=== PATIENT | male | born 1945 | race Caucasian/White ===

== ENCOUNTER 2019-05-21 09:41 | Inpatient (IN) ==
[2019-05-21] MEDS ORDERED: Ipratropium/Albuterol Neb 3 ML IH STA (10:10)
[2019-05-21 11:14] LABS: Basophils # 0.1 K/mcL (0.0-0.2); Basophils % 1.2 %; Eosinophils # 0.3 K/mcL (0.0-0.6); Eosinophils % 2.9 %; Hematocrit 33.4 % (37.5-50.1); Hemoglobin 11.9 g/dL (12.9-16.9); Immature Granulocytes % 1.5 % (0-4); Lymphocytes # 1.9 K/mcL (0.6-4.6); Lymphocytes % 20.6 %; Mean Corpuscular HGB Conc 35.6 g/dL (31.6-35.5); Mean Corpuscular Hemoglobin 34.6 pg (28.0-33.3); Mean Corpuscular Volume 97.1 fL (83.0-100.0); Monocytes # 0.9 K/mcL (0.0-1.3); Monocytes % 9.6 %; Platelet Count 208 K/mcL (140-400); Red Blood Count 3.44 M/mcL (4.19-5.50); Segmented Neutrophils % 64.2 %; White Blood Count 9.3 K/mcL (4.3-11.1)
[2019-05-21] MEDS ORDERED: Acetaminophen 325 MG TABLET PO PRN (15:21)
[2019-05-21] MEDS ORDERED: Naloxone 0.4 MG/ML INJ IVP PRN (15:21)
[2019-05-21] MEDS ORDERED: Ondansetron 4 MG/2 ML VIAL IVP PRN (15:21)
[2019-05-21] MEDS ORDERED: GuaiFENesin Liq 200 MG/10 ML UDC PO PRN (15:47)
[2019-05-21] MEDS: Albuterol 2.5 MG/3 ML NEBULIZER IH SCH ×2 (16:15→19:31)
[2019-05-21] MEDS: predniSONE 20 MG TABLET PO SCH (17:24)
[2019-05-21] MEDS: Azithromycin 250 MG TABLET PO SCH (17:25)
[2019-05-21] MEDS: Magnesium Oxide 400 MG TABLET PO SCH (20:46)
[2019-05-22] MEDS: Albuterol 2.5 MG/3 ML NEBULIZER IH SCH ×6 (00:20→20:23)
[2019-05-22 06:45] LABS: BUN/Creatinine Ratio 15 (6-26); Blood Urea Nitrogen 17 mg/dL (8-23); Calcium 9.3 mg/dL (8.6-10.3); Carbon Dioxide 26 mEq/L (23-29); Chloride 93 mEq/L (98-107); Glucose 316 mg/dL (70-105); Osmolality,Calculated 280 (280-300); Potassium 4.6 mEq/L (3.5-5.1); Sodium 128 mEq/L (136-145); eGFR For African Americans > 60 (> 60); eGFR For Non-African Americans > 60 (> 60)
[2019-05-22] MEDS: Azithromycin 250 MG TABLET PO SCH (08:24)
[2019-05-22] MEDS: predniSONE 20 MG TABLET PO SCH (08:25)
[2019-05-22] MEDS: Nicotine 14 MG PATCH.TD24 TD SCH (08:27)
[2019-05-22] MEDS: Magnesium Oxide 400 MG TABLET PO SCH ×2 (10:02→20:20)
[2019-05-22] MEDS: *HR* HYDROcodone/Acet 5/325 mg TABLET PO PRN ×2 (12:59→20:33)
[2019-05-22] MEDS ORDERED: Dextrose Gel 15 GM/37.5 ML TUBE PO PRN ×2 (14:56)
[2019-05-22] MEDS ORDERED: D5% in Water 1,000 ML IVC PRN (14:56)
[2019-05-22] MEDS ORDERED: *HR* Dextrose 50 % in Water (Syg) 50 ML SYRINGE IVP PRN (14:56)
[2019-05-22] MEDS: Insulin LISPRO 300 UNITS/3 ML VIAL SQ SCH ×2 (16:42→20:20)
[2019-05-22 17:06] LABS: Estimated Average Glucose 229 mg/dl
[2019-05-22 18:34] LABS: Prothrombin Time 11.9 Seconds (9.4-12.1)
[2019-05-22 18:36] LABS: Activated Partial Thrombo Time 29.1 Seconds (26.0-36.0)
[2019-05-23] MEDS: Albuterol 2.5 MG/3 ML NEBULIZER IH SCH ×6 (00:25→20:48)
[2019-05-23 06:49] LABS: BUN/Creatinine Ratio 22 (6-26); Blood Urea Nitrogen 27 mg/dL (8-23); Calcium 9.4 mg/dL (8.6-10.3); Carbon Dioxide 27 mEq/L (23-29); Chloride 95 mEq/L (98-107); Glucose 170 mg/dL (70-105); Osmolality,Calculated 279 (280-300); Potassium 4.4 mEq/L (3.5-5.1); Sodium 130 mEq/L (136-145); eGFR For African Americans > 60 (> 60); eGFR For Non-African Americans 58 (> 60)
[2019-05-23] MEDS: predniSONE 20 MG TABLET PO SCH (08:35)
[2019-05-23] MEDS: Nicotine 14 MG PATCH.TD24 TD SCH (08:35)
[2019-05-23] MEDS: Azithromycin 250 MG TABLET PO SCH (08:35)
[2019-05-23] MEDS: Insulin LISPRO 300 UNITS/3 ML VIAL SQ SCH ×4 (08:36→20:38)
[2019-05-23] MEDS: Magnesium Oxide 400 MG TABLET PO SCH ×2 (08:36→20:37)
[2019-05-23] MEDS: *HR* HYDROcodone/Acet 5/325 mg TABLET PO PRN ×2 (08:45→16:36)
[2019-05-23] MEDS: 0.9 % Sodium Chloride 1,000 ML IVC SCH (20:48)
[2019-05-23] MEDS ORDERED: Insulin DETEMIR 100 UNIT/ML X5UNITS SQ SCH (21:00)
[2019-05-24] MEDS: Albuterol 2.5 MG/3 ML NEBULIZER IH SCH ×7 (00:22→23:24)
[2019-05-24 07:25] LABS: Chol/HDL Ratio 3.9 (0-4.9)
[2019-05-24] MEDS: Insulin LISPRO 300 UNITS/3 ML VIAL SQ SCH ×2 (07:27→12:29)
[2019-05-24] MEDS: Azithromycin 250 MG TABLET PO SCH (08:36)
[2019-05-24] MEDS: Magnesium Oxide 400 MG TABLET PO SCH (08:36)
[2019-05-24] MEDS: predniSONE 20 MG TABLET PO SCH (08:36)
[2019-05-24] MEDS: Nicotine 14 MG PATCH.TD24 TD SCH (08:36)
[2019-05-24] MEDS: 0.9 % Sodium Chloride 1,000 ML IVC SCH (10:22)
[2019-05-24] MEDS ORDERED: *HR* FentaNYL (PF) 100 MCG/2 ML VIAL ONE ×2 (14:25→14:26)
[2019-05-24] MEDS ORDERED: Ondansetron 4 MG/2 ML VIAL ONE (14:25)
[2019-05-24] MEDS ORDERED: Dexamethasone 4 MG/ML VIAL ONE (14:25)
[2019-05-24] MEDS ORDERED: Lidocaine -MPF 2% 2 ML VIAL ONE (14:25)
[2019-05-24] MEDS ORDERED: *HR* Midazolam HCl 2 MG/2 ML VIAL ONE (14:25)
[2019-05-24] MEDS ORDERED: *HR* Propofol 200 MG/20 ML VIAL IVP ONE (14:25)
[2019-05-24] MEDS ORDERED: cloNIDine HCl 0.1 MG TABLET ONE (14:34)
[2019-05-24] MEDS ORDERED: Acetaminophen IV 1,000 MG/100 ML INFUS..BTL ONE (14:34)
[2019-05-24] MEDS ORDERED: Famotidine 20 MG/2 ML VIAL ONE (14:34)
[2019-05-24] MEDS ORDERED: Pregabalin 75 MG CAPSULE ONE (14:34)
[2019-05-24] MEDS ORDERED: *HR* Rocuronium Bromide 50 MG/5 ML VIAL ONE (14:45)
[2019-05-24] MEDS ORDERED: CeFAZolin Syr 2,000MG/20 ML 2,000 MG/20 ML SYRINGE IVPB ONE (14:57)
[2019-05-24] MEDS ORDERED: EPHEDrine 50 MG/ML VIAL ONE (15:54)
[2019-05-24] MEDS ORDERED: 0.9 % Sodium Chloride 1,000 ML IVC SCH (18:17)
[2019-05-24] MEDS ORDERED: Ondansetron 4 MG/2 ML VIAL IVP PRN (18:17)
[2019-05-24] MEDS ORDERED: D5% in Water 1,000 ML IVC PRN (18:17)
[2019-05-24] MEDS ORDERED: Acetaminophen 325 MG TABLET PO PRN (18:17)
[2019-05-24] MEDS ORDERED: Dextrose Gel 15 GM/37.5 ML TUBE PO PRN ×2 (18:17)
[2019-05-24] MEDS ORDERED: *HR* Dextrose 50 % in Water (Syg) 50 ML SYRINGE IVP PRN (18:17)
[2019-05-24] MEDS ORDERED: *HR* HYDROcodone/Acet 5/325 mg TABLET PO PRN ×2 (18:17)
[2019-05-24] MEDS ORDERED: Naloxone 0.4 MG/ML INJ IVP PRN (18:17)
[2019-05-24] MEDS ORDERED: GuaiFENesin Liq 200 MG/10 ML UDC PO PRN (18:17)
[2019-05-24] MEDS ORDERED: Gabapentin 300 MG CAPSULE PO SCH (21:00)
[2019-05-24] MEDS ORDERED: Magnesium Oxide 400 MG TABLET PO SCH (21:00)
[2019-05-24] MEDS ORDERED: Insulin DETEMIR 100 UNIT/ML X5UNITS SQ SCH ×2 (21:00)
[2019-05-24] MEDS ORDERED: Insulin LISPRO 300 UNITS/3 ML VIAL SQ SCH (21:00)
[2019-05-25] MEDS: Albuterol 2.5 MG/3 ML NEBULIZER IH SCH ×5 (04:06→20:10)
[2019-05-25 07:06] VITALS: BP 167/76
[2019-05-25] MEDS ORDERED: Albuterol 2.5 MG/3 ML NEBULIZER ONE (07:28)
[2019-05-25] MEDS ORDERED: Insulin LISPRO 300 UNITS/3 ML VIAL SQ SCH (07:30)
[2019-05-25] MEDS ORDERED: Azithromycin 250 MG TABLET PO SCH (09:00)
[2019-05-25] MEDS ORDERED: Nicotine 14 MG PATCH.TD24 TD SCH (09:00)
[2019-05-25] MEDS ORDERED: predniSONE 20 MG TABLET PO SCH (09:00)
[2019-05-26] MEDS: Albuterol 2.5 MG/3 ML NEBULIZER IH SCH (00:16)
== END 2019-05-25 16:30 | disposition home or self-care (01) | DRG 168 ==
LOC: EMEROOARM 09:41 → 3BNU 09:41 → SUATTDRO 05-23 10:52 → 2NNU 05-24 14:22
PROVIDERS: ADMIT Internal Medicine; ATTEND Family Medicine

== ENCOUNTER 2019-05-27 22:06 | Observation (INO) ==
[2019-05-27] MEDS ORDERED: Isovue-370 500 ML BOTTLE IVP ONE ×2 (22:23→22:32)
[2019-05-27 23:10] LABS: Basophils % 0.1 %; Hematocrit 28.4 % (37.5-50.1); Immature Granulocytes % 2.5 % (0-4); Lymphocytes # 0.8 K/mcL (0.6-4.6); Lymphocytes % 9.4 %; Mean Corpuscular HGB Conc 33.8 g/dL (31.6-35.5); Mean Corpuscular Hemoglobin 34.4 pg (28.0-33.3); Mean Corpuscular Volume 101.8 fL (83.0-100.0); Mean Platelet Volume 9.6 fL (9.4-12.4); Monocytes # 0.6 K/mcL (0.0-1.3); Monocytes % 6.8 %; Neutrophils # 6.8 K/mcL (1.6-8.9); Platelet Count 174 K/mcL (140-400); Red Blood Count 2.79 M/mcL (4.19-5.50); Red Cell Distribution Width 12.1 % (11.5-14.5); Segmented Neutrophils % 81.2 %; White Blood Count 8.4 K/mcL (4.3-11.1)
[2019-05-27 23:11] LABS: Hemoglobin 9.6 g/dL (12.9-16.9)
[2019-05-27 23:22] LABS: Prothrombin Time 11.7 Seconds (9.4-12.1)
[2019-05-27 23:29] LABS: Bilirubin,Urine Negative (Negative); Blood,Urine Negative (Negative); Clarity,Urine Clear (Clear); Color,Urine Yellow (Yellow); Glucose,Urine (UA) Normal (Normal); Ketones,Urine Negative (Negative); Leukocyte Esterase,Urine Negative (Negative); Nitrite,Urine Negative (Negative); Protein,Urine Negative (Neg-Trace); Specific Gravity,Urine 1.014 (1.010-1.025); Urobilinogen,Urine Normal (Normal)
[2019-05-27 23:31] LABS: Alanine Aminotransferase 28 Units/L (7-52); Albumin 3.5 g/dL (3.5-5.7); Alkaline Phosphatase 124 Units/L (34-104); Aspartate Amino Transferase 35 Units/L (13-39); BUN/Creatinine Ratio 28 (6-26); Bilirubin,Direct 0.2 mg/dL (0.0-0.2); Bilirubin,Indirect 0.2 mg/dL (0.0-1.0); Bilirubin,Total 0.4 mg/dL (0.3-1.0); Blood Urea Nitrogen 28 mg/dL (8-23); Calcium 8.9 mg/dL (8.6-10.3); Carbon Dioxide 18 mEq/L (23-29); Chloride 96 mEq/L (98-107); Globulin 3.4 g/dL (2.4-3.5); Glucose 209 mg/dL (70-105); Lipase 35 Units/L (11-82); Osmolality,Calculated 276 (280-300); Sodium 127 mEq/L (136-145); Total Protein 6.9 g/dL (6.4-8.9); eGFR For African Americans > 60 (> 60); eGFR For Non-African Americans > 60 (> 60)
[2019-05-28] MEDS ORDERED: 0.9 % Sodium Chloride 1,000 ML IVC SCH (01:15)
[2019-05-28] MEDS ORDERED: Ondansetron 4 MG/2 ML VIAL IVP ONE (01:52)
[2019-05-28] MEDS ORDERED: Naloxone 0.4 MG/ML INJ IVP PRN (02:43)
[2019-05-28] MEDS ORDERED: *HR* Dextrose 50 % in Water (Syg) 50 ML SYRINGE IVP PRN (02:45)
[2019-05-28] MEDS ORDERED: D5% in Water 1,000 ML IVC PRN (02:45)
[2019-05-28] MEDS ORDERED: Dextrose Gel 15 GM/37.5 ML TUBE PO PRN ×2 (02:45)
[2019-05-28] MEDS ORDERED: *HR* LORazepam 2 MG/ML VIAL IVP PRN ×3 (03:28)
[2019-05-28] MEDS ORDERED: Ondansetron ODT 4 MG TAB.RAPDIS SL PRN (03:43)
[2019-05-28 05:01] LABS: Basophils % 0.2 %; Eosinophils % 0.1 %; Hematocrit 27.1 % (37.5-50.1); Hemoglobin 9.7 g/dL (12.9-16.9); Immature Granulocytes % 3.3 % (0-4); Lymphocytes # 1.3 K/mcL (0.6-4.6); Lymphocytes % 13.5 %; Mean Corpuscular HGB Conc 35.8 g/dL (31.6-35.5); Mean Corpuscular Hemoglobin 34.3 pg (28.0-33.3); Mean Corpuscular Volume 95.8 fL (83.0-100.0); Mean Platelet Volume 9.5 fL (9.4-12.4); Monocytes # 0.9 K/mcL (0.0-1.3); Monocytes % 9.4 %; Neutrophils # 6.9 K/mcL (1.6-8.9); Platelet Count 188 K/mcL (140-400); Red Blood Count 2.83 M/mcL (4.19-5.50); Segmented Neutrophils % 73.5 %; White Blood Count 9.4 K/mcL (4.3-11.1)
[2019-05-28 05:22] LABS: Alanine Aminotransferase 25 Units/L (7-52); Albumin 3.3 g/dL (3.5-5.7); Alkaline Phosphatase 106 Units/L (34-104); Aspartate Amino Transferase 30 Units/L (13-39); BUN/Creatinine Ratio 28 (6-26); Bilirubin,Total 0.6 mg/dL (0.3-1.0); Blood Urea Nitrogen 26 mg/dL (8-23); Calcium 8.8 mg/dL (8.6-10.3); Carbon Dioxide 22 mEq/L (23-29); Chloride 99 mEq/L (98-107); Globulin 3.2 g/dL (2.4-3.5); Glucose 184 mg/dL (70-105); Osmolality,Calculated 280 (280-300); Potassium 4.1 mEq/L (3.5-5.1); Sodium 130 mEq/L (136-145); Total Protein 6.5 g/dL (6.4-8.9); eGFR For African Americans > 60 (> 60); eGFR For Non-African Americans > 60 (> 60)
[2019-05-28] MEDS ORDERED: Insulin LISPRO 300 UNITS/3 ML VIAL SQ SCH (06:00)
[2019-05-28] MEDS: Nicotine 14 MG PATCH.TD24 TD SCH (08:25)
[2019-05-28] MEDS: Folic Acid 1 MG TABLET PO SCH (08:26)
[2019-05-28] MEDS: Thiamine (B-1) 100 MG TABLET PO SCH (08:26)
[2019-05-28] MEDS: Vitamin B Complex/Vit C/Vit E 1 EACH TABLET PO SCH (08:26)
[2019-05-28 12:01] LABS: Hematocrit 28.8 % (37.5-50.1); Hemoglobin 10.1 g/dL (12.9-16.9)
[2019-05-28 16:19] LABS: Hematocrit 28.4 % (37.5-50.1); Hemoglobin 9.7 g/dL (12.9-16.9)
[2019-05-28] MEDS: Insulin LISPRO 300 UNITS/3 ML VIAL SQ SCH ×2 (17:39)
[2019-05-28] MEDS: Magnesium Oxide 400 MG TABLET PO SCH (20:03)
[2019-05-28 22:44] LABS: Hematocrit 28.6 % (37.5-50.1); Hemoglobin 10.1 g/dL (12.9-16.9)
[2019-05-29] MEDS: Vitamin B Complex/Vit C/Vit E 1 EACH TABLET PO SCH (08:01)
[2019-05-29] MEDS: Thiamine (B-1) 100 MG TABLET PO SCH (08:01)
[2019-05-29] MEDS: Magnesium Oxide 400 MG TABLET PO SCH (08:02)
[2019-05-29] MEDS: Folic Acid 1 MG TABLET PO SCH (08:02)
[2019-05-29] MEDS: Insulin LISPRO 300 UNITS/3 ML VIAL SQ SCH ×2 (08:09→12:11)
[2019-05-29 11:05] VITALS: BP 101/60
[2019-05-29] MEDS: Nicotine 14 MG PATCH.TD24 TD SCH (12:00)
[2019-05-29] MEDS ORDERED: FLU Vac QV 19-20 (6Month+)/PF 0.5 ML SYRINGE IM ONE (12:50)
== END 2019-05-29 13:40 | disposition home or self-care (01) ==
LOC: 3NENU 22:06 → EMEROOARM 22:06 → SUATTDRO 05-28 01:34 → 3NENU 05-28 02:15
PROVIDERS: ADMIT Internal Medicine; ATTEND Internal Medicine